=== PATIENT | male | born 1980 | race Caucasian/White ===

== ENCOUNTER 2024-04-07 14:20 | Outpatient (AMB) | payer OTHER, SELFPAY ==
--- NOTE | 2024-04-07 14:25 | MHC.PC.OV ---
Vital Signs 04/07/24 14:29 Height 5 ft 7.32 in Weight 173 lb BMI 26.8 BP 150/100 H Blood Pressure Location Lt brachial Position Sitting Intake Visit Reasons: establish care-[facility] rescheduled from 10/16 Catering Service Manager Required: No Accompanied by: Self / Same As Patient Allergies No Known Allergies Allergy (Verified 04/07/24 14:44) Medication List - Last Reconciled 04/07/24 by Vijaya Swain MD No Known Home Meds Tobacco use date assessed: 04/07/24 Dental Screening Dental Screen Date: 04/07/24 Did you have a dental visit in the last 12 months?: No Did you have a dental problem in the last 6 months where you did not have access to dental care?: No Was dental information given to patient?: Patient has dentist HPI HPI Comments History of Present Illness Details The patient is a 43-year-old male presenting with elevated blood pressure and palpitations. The patient reports experiencing elevated blood pressure in the past few years, with episodes coinciding with what he thought were panic attacks, characterized by tunnel vision and nearly fainting. These episodes led to an incident in [place] where an ambulance was called, and the responders noted significantly high blood pressure. Historically, the patient has been poor in managing this condition. He has not been on any routine medication or antihypertensive therapy prior to this visit. In addition to hypertension, the patient describes palpitations predominantly occurring at rest and more frequently with caffeine intake, typically consuming five to six cups of coffee per day. These symptoms started earlier this year along with reported stress. Social History reveals significant nicotine use, estimated at 10 cigarettes per day, and occasional alcohol consumption. The patient admits readiness to quit smoking despite struggling with dependency. The family history is significant for cardiovascular and oncological conditions. His father following complications related to diabetes, a myocardial infarction, and stroke. His mother, who currently suffers from atrial fibrillation, has a history of myocardial infarction and skin cancer. Additionally, the patient's maternal family has history, including his aunt who recently from breast cancer. [facility] Surgical History History of surgery on right wrist Family History Mother Afib Skin cancer Father Diabetes Hypertension Stroke Heart attack Maternal Grandmother Cancer Maternal Aunt Cancer Social History Housing: House Alcohol intake: current Alcohol intake frequency: holidays/special occasions only Alcohol type: beer, wine and hard liquor Patient Tobacco Use Status: Current everyday Tobacco user Tobacco use type: Cigarette Cigarettes Per Day: 10 e-Cigarette/Vaping Use: Never Used Second Hand Smoke Exposure: No service: No Current occupational status: unemployed Cognitive needs: No Hearing needs: No Vision needs: No Questionnaire PHQ-9 Over the last 2 weeks, how often have you been bothered by any of the following problems? 1. Little interest or pleasure in doing things: not at all 2. Feeling down, depressed, or hopeless: more than half the days 3. Trouble falling or staying asleep, or sleeping too much: nearly every day 4. Feeling tired or having little energy: nearly every day 5. Poor appetite or overeating: not at all 6. Feeling bad about yourself - or that you are a failure or have let yourself or your family down: several days 7. Trouble concentrating on things, such as reading the newspaper or watching television: several days 8. Moving or speaking so slowly that other people could have noticed. Or the opposite - being so fidgety or restless that you have been moving around a lot more than usual: more than half the days 9. Thoughts that you would be better off or of hurting yourself in some way: not at all Total score: 12 Depression Screening Interpretation: Positive Depression Screening Follow-up: Existing condition, Follow-up Visit Requested and Declines treatment Depression Screening Done: Yes 16580 - PHQ-9 Billing: Yes Source: Developed by Drs. Sam Villalpando, Lacey Day, Jamin Bowen and colleagues, with an educational uriel from [employer]. Thrive Questionnaire Date Thrive assessed: 04/01/24 I am a: Patient What is your living situation today?: I have a place to live, but I am worried about losing it in the future Within the past 12 months, did the food you bought not last and you didn't have the money to get more?: Sometimes True Within the past 12 months, did you worry whether your food would run out before you got money to buy more?: Often true Do you have trouble paying for medicines?: Yes Do you have trouble getting transportation to medical appointments?: No Do you have trouble paying your heating and electricity bill?: Yes Do you have trouble taking care of your child, family member or friend?: No Do you have trouble with day-to-day activities such as bathing, preparing meals, shopping, managing finances, etc.?: No Are you currently unemployed and looking for a job?: Yes Are you interested in more education?: Yes Please select the resources that you would like help with: None Currently or been in a relationship where the following occur: No concerns reported THRIVE Score: 4 AUDIT C Alcohol Use Questionnaire (AUDIT-C) 1. How often do you have a drink containing alcohol?: Monthly or less 2. How many drinks containing alcohol do you have on a typical day when you are drinking?: 1 or 2 3. How often do you have six or more drinks on one occasion?: Less than monthly Total Score: 2 Score Reviewed/Action Taken: No NIKA-7 AMB Questionnaire NIKA-7 Date NIKA - 7 assessed: 04/07/24 Feeling nervous, anxious, or on edge: 3 = Nearly every day Not being able to stop or control worryin = Several days Worrying too much about different things: 2 = More than half the days Trouble relaxin = Not at all Being so restless that it is hard to sit still: 1 = Several days Becoming easily annoyed or irritable: 0 = Not at all Feeling afraid as if something awful might happen: 0 = Not at all Total NIKA-7 score (0-4 normal; 5-9 mild; 10-14 moderate; 15-21 severe): 7 Source: Developed by Drs. Sam Villalpando, Lacey Day, Jamin Bowen and colleagues, with an educational uriel from [employer]. NIKA-7 Assessment Billing NIKA-7 Assessment Tool: NIKA-7 Assessment 78914 Review of Systems Const All systems reviewed & are unremarkable except as noted in HPI and below Card Denies chest pain at rest, Denies chest pain with activity, Reports rapid heart rate, Denies edema, Denies irregular heart rhythm, Denies claudication, Denies dyspnea, Denies dyspnea on exertion, Denies orthopnea, Denies paroxysmal nocturnal dyspnea and Denies slow heart rate Resp Denies cough, Denies dyspnea and Denies dyspnea on exertion GI Denies abdominal pain, Denies change in bowel habits, Denies excessive flatus, Denies nausea and Denies vomiting Denies urinary hesitancy, Denies urinary incontinence and Denies urinary urgency Musc Denies atrophy, Denies deformity and Denies limited range of motion Skin/Breast Denies bleeding lesions, Denies changing lesions and Denies rash Psych Reports anxiety and Reports depression Physical exam (Primary Care) Vital Signs: Last Vital Signs BP 150/100 H 04/07/24 14:29 Care Plan Goal for BP management: Recheck blood pressure with nurse navigator in 3 weeks BMI result Body Mass Index 26.8 Tobacco/Smoking Status: Tobacco use Status Tobacco use date assessed 04/07/24 04/07/24 14:39 Patient Tobacco Use Status Current everyday Tobacco 04/07/24 14:39 Tobacco use type Cigarette 04/07/24 14:39 e-Cigarette/Vaping Use Never Used 04/07/24 14:39 Are you ready to quit: No Tobacco cessation counseling provided: Yes Items discussed: Nicotine replacement and QuitWorks Relapse Prevention: discussed the importance of a supportive environment, discussed extending NRT, discussed negative mood or depression after quitting, weight gain after smoking is common and discussed dietary, exercise and/or lifestyle changes Number of minutes spent counselin CPT code: 90451 - 4-10 Minutes PHQ-9: PHQ-9 Score PHQ-9: Total score 12 04/07/24 14:54 Depression Screening Interpretation: Positive Depression Screening Follow-up: Existing condition, Follow-up Visit Requested and Declines treatment Thrive Assessment: Date of Thrive Assessment Date Thrive assessed 04/01/24 04/07/24 14:26 Currently or been in a relationship where the following occur: No concerns reported Resp Effort & Inspection: normal respiratory effort Auscultation: clear to auscultation bilaterally Cardio Jugular venous distension: no JVD Rate: regular rate Rhythm: regular rhythm Heart sounds: S1 normal heart sound present and S2 normal heart sound present Extrem General: Yes full ROM Office Procedures Flu Questionnaire Does the patient have a severe egg allergy?: No Does the patient have severe life threatening allergies?: No Does the patient have a fever or illness today?: No Has the patient ever had Guillain-[place] Syndrome?: No Has the patient ever had any past reaction to a flu shot?: No Immunizations Fluarix Triv 2521-3593 (PF) 45 mcg (15 mcg x 3)/0.5 mL IM syringe Performing Provider: Vijaya Swain MD Performing Location: [facility] [place] [facility] Administered by: JAJA Solitario on 04/07/24 14:59 Dose Route Admin Location Dispensed Lot Number Expiration Date [facility] Latexer 0.5 mL IM Left Deltoid 0.5 mL [id number] 11/16/24 [id number] [employer] VIS Given Date VIS Provided VIS Publication Date 04/07/24 Single Vaccine 20 Eligibility Eligibility Date Funding Source Not [facility] Eligible 04/07/24 Private Coding Level of Care Code New Pt Level 4 (77209) Complex EM visit Add On G2211 Diagnoses Palpitations R00.2 Moderate major depression F32.1 Essential hypertension I10 NIKA (generalized anxiety disorder) F41.1 Additional Codes PHQ-9 - 85426 - PHQ-9 Billing: Yes ([id number]) NIKA-7 Assessment Billing - NIKA-7 Assessment Tool: NIKA-7 Assessment 08399 ([id number]) Vital Signs *Quality* - CPT code: 87391 - 4-10 Minutes ([id number]) Time Spent (min) 25 Assessment & Plan Assessment & Plan (1) Palpitations: Code(s): R00.2 - Palpitations Category: Medical (2) Moderate major depression: Code(s): F32.1 - Major depressive disorder, single episode, moderate Category: Medical (3) Essential hypertension: Code(s): I10 - Essential (primary) hypertension Category: Medical (4) NIKA (generalized anxiety disorder): Code(s): F41.1 - Generalized anxiety disorder Category: Medical Plan - Essential Hypertension: Recommend rechecking blood pressure in three weeks. If elevated, start antihypertensive medication. Suggest the daily use of baby aspirin to reduce cardiovascular risk. - Palpitations: Order an EKG and a Holter monitor for 24 hours to assess for arrhythmias. Check thyroid function, glucose levels, renal and liver function, and lipid profiles. - Depression and Anxiety: Offer counseling if the patient finds symptoms unmanageable. - Nicotine Dependence: Discuss smoking cessation options, including patches and supportive resources. - Decrease caffeine intake to two cups a day and aim to consume before noon to manage palpitations. Patient was informed and verbally consented to the use of an ambient scribe for clinic note documentation during this visit. I discussed the potential diagnosis of developed hypertension and the management steps including lifestyle modifications, such as reducing caffeine intake and smoking cessation efforts, for cardiovascular risk reduction. I highlighted the importance of the follow-up appointment in three weeks to reassess blood pressure, as well as the potential need to initiate antihypertensive medication if hypertension persists. I also outlined the use of a Holter monitor and EKG to assess palpitations and any underlying arrhythmia concerns. I addressed the offer of counseling for depression and anxiety, assessed through a PHQ-9 score of 12, and the patient declined. We discussed initiating a baby aspirin regimen to mitigate the risk of cardiovascular events. Potential risks and benefits of proposed interventions were discussed, and the patient consented to the plan, emphasizing a supportive environment for smoking cessation. Orders: Orders Influenza [id number] Immunization Today Z23 - Encounter for immunization Thyroid Stimulating Hormone Today R00.2 - Palpitations Comprehensive Rueter. Panel Fast Today R00.2 - Palpitations ECG 12 lead EKG Today R00.2 - Palpitations ECG holter monitor 24 hour Today R00.2 - Palpitations Lipid Panel Today I10 - Essential (primary) hypertension Complete Blood Count Auto Diff Today R00.2 - Palpitations Patient Instructions: - Re-evaluate blood pressure in three weeks. - Reduce daily coffee intake to no more than two cups, ideally before noon. - Consider using smoking cessation aids like patches. - Begin taking a daily baby aspirin to reduce cardiovascular risk. - Be aware of any symptoms like increased palpitations or significant mood changes, and seek medical care if they occur.
[2024-04-07 14:29] VITALS: BP 150/100; BMI 26.8
== END 2024-04-07 15:07 | disposition home or self-care (01) ==
PROVIDERS: PCP Internal Medicine; Visit Provider Internal Medicine
DX: R00.2 Palpitations (principal); F32.1 Major depressive disorder, single episode, moderate; I10 Essential (primary) hypertension; F41.1 Generalized anxiety disorder; Z23 Encounter for immunization

== ENCOUNTER → 2024-04-07 14:20 | Outpatient (BNVA) | payer OTHER, SELFPAY | PROVIDERS: PCP Internal Medicine; Visit Provider Internal Medicine | DX: R00.2 Palpitations (principal); F32.1 Major depressive disorder, single episode, moderate; I10 Essential (primary) hypertension; F41.1 Generalized anxiety disorder; Z23 Encounter for immunization | CPT/HCPCS: 90471; 90656; 96127 ==

== ENCOUNTER → 2024-04-20 06:52 | Outpatient (REF) | payer OTHER, SELFPAY ==
--- NOTE | 2024-04-20 06:54 | HM_ITS ---
Conclusion: 1. Patient was monitored for total period of 1 day 2. Baseline was normal sinus rhythm with average heart of 69 beats per minute 3. No significant pauses or arrhythmias noted 4. Patient marked 2 events correlating with sinus rhythm MTDD
== END ==
LOC: HO.CARD 06:52
PROVIDERS: PCP Internal Medicine; Visit Provider Internal Medicine
DX: R00.2 Palpitations (principal)
CPT/HCPCS: 93225

== ENCOUNTER → 2024-04-20 06:54 | Outpatient (BNV) | payer OTHER, SELFPAY | PROVIDERS: PCP Internal Medicine; Visit Provider Internal Medicine Cardiovascular Disease | DX: I47.10 Supraventricular tachycardia, unspecified (principal) | CPT/HCPCS: 93227 ==

== ENCOUNTER → 2024-04-24 11:01 | Outpatient (BNVA) | payer OTHER, SELFPAY | PROVIDERS: PCP Internal Medicine ==

== ENCOUNTER → 2024-04-24 11:02 | Outpatient (REF) | payer OTHER, SELFPAY ==
--- NOTE | 2024-04-24 11:07 | ECG_ITS ---
Test Reason : PALPS Blood Pressure : / mmHG Vent. Rate : 059 BPM Atrial Rate : 059 BPM P-R Int : 148 ms QRS Dur : 102 ms QT Int : 426 ms P-R-T Axes : 056 084 047 degrees QTc Int : 421 ms Sinus bradycardia Incomplete right bundle branch block Borderline ECG No previous ECGs available Referred By: Vijaya Swain Electronically Signed By:Manuel Burrows
== END ==
LOC: HO.CARD 11:02
PROVIDERS: PCP Internal Medicine; Visit Provider Internal Medicine
DX: R00.2 Palpitations (principal)
CPT/HCPCS: 93005

== ENCOUNTER → 2024-04-24 11:07 | Outpatient (BNV) | payer OTHER, SELFPAY | PROVIDERS: PCP Internal Medicine; Visit Provider Internal Medicine Cardiovascular Disease | DX: R00.2 Palpitations (principal); R00.1 Bradycardia, unspecified; I45.19 Other right bundle-branch block; R94.31 Abnormal electrocardiogram [ECG] [EKG] | CPT/HCPCS: 93010 ==

== ENCOUNTER 2024-04-30 08:15 | Outpatient (REF) | payer OTHER, SELFPAY ==
[2024-04-30 08:34] LABS: MANUAL DIFF FLAG NO
[2024-04-30 09:10] LABS: Basophils Percent Auto 0.5 % (0-2); Eosinophils Absolute Auto 0.2 X10*3/uL (0.0-0.4); Eosinophils Percent Auto 2.1 % (0-4); Hematocrit 47.2 % (42.0-52.0); Hemoglobin 15.6 g/dl (14.0-18.0); Imm Gran Abs Auto 0.02 X10*3/uL (0.00-0.03); Imm Gran Pct Auto 0.2 % (0.0-0.4); Lymphocytes Absolute Auto 2.1 X10*3/uL (1.2-4.9); Lymphocytes Percent Auto 25.7 % (20-40); Mean Corpuscular HGB Conc 33.1 g/dl (31.0-36.0); Mean Corpuscular Hemoglobin 27.7 pg (27.0-33.0); Mean Corpuscular Volume 83.7 fL (80.0-98.0); Monocytes Absolute Auto 0.8 X10*3/uL (0.1-1.2); Monocytes Percent Auto 9.8 % (2-11); Neutrophils Percent Auto 61.7 % (45-73); Platelet Count 287 X10*3/uL (160-400); Red Blood Count 5.64 X10*6/uL (4.60-5.80); Red Cell Distribution Width 13.2 % (11.0-16.0)
[2024-04-30 09:44] LABS: Alanine Aminotransferase 46 U/L (0-40); Albumin Level 4.2 g/dL (3.5-5.0); Alkaline Phosphatase 80 U/L (39-117); Anion Gap 9 (12-20); Aspartate Amino Transferase 27 U/L (5-37); Bilirubin Total 0.5 mg/dL (0.0-1.0); Blood Urea Nitrogen 12 mg/dL (9-16); Calcium 9.5 mg/dL (8.4-10.2); Carbon Dioxide 30 mmol/L (22-29); Chloride 107 mmol/L (96-108); Cholesterol 196 mg/dL (<200); Estimated Glomerular Filt Rate > 60; Glucose Fasting 91 mg/dL (60-99); HDL Cholesterol 26 mg/dL (>40); LDL Cholesterol Calculated 145 mg/dL (<100); Potassium 4.4 mmol/L (3.3-5.1); Sodium 142 mmol/L (135-145); Total Protein 7.4 g/dL (6.5-8.0); Triglycerides 127 mg/dL (<150)
[2024-04-30 10:01] LABS: Thyroid Stimulating Hormone 1.84 uIU/mL (0.32-4.0)
== END 2024-04-30 08:16 | disposition home or self-care (01) ==
LOC: HO.LAB 08:15
PROVIDERS: PCP Internal Medicine; Visit Provider Internal Medicine
DX: R00.2 Palpitations (principal); I10 Essential (primary) hypertension
CPT/HCPCS: 36415; 80053; 80061; 84443; 85025

== ENCOUNTER 2024-08-11 15:20 | Outpatient (AMB) | payer OTHER, SELFPAY ==
--- NOTE | 2024-08-11 15:22 | MHC.PC.OV ---
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 Accompanied by: Self / Same As Patient Allergies No Known Allergies Allergy (Verified 08/11/24 15:34) Medication List - Last Reconciled 08/11/24 by Vijaya Swain MD No Known Home Meds Tobacco use date assessed: 08/11/24 Dental Screening Dental Screen Date: 08/11/24 Did you have a dental visit in the last 12 months?: No Did you have a dental problem in the last 6 months where you did not have access to dental care?: No Was dental information given to patient?: Patient has dentist HPI HPI Comments History of Present Illness Details The patient is a 43-year-old male presenting for a routine physical examination. He reports a significant history of tobacco use, currently smoking approximately 30 cigarettes daily, with multiple unsuccessful attempts to quit, utilizing methods such as nicotine patches, gums, and Chantix. He wishes to quit smoking but finds it challenging due to withdrawal symptoms and lack of efficacy with past interventions. The patient has a mild major depressive disorder, with a PHQ-9 score of 9. He has not sought psychiatric counseling or medication but acknowledges the factors contributing to his depression. He also experiences anxiety, reflected in a NIKA score of 13, and has not pursued therapy for this condition. In the past, he has experienced episodes jacky to panic attacks but reports no recent occurrences of such symptoms. He denies chest pain or shortness of breath currently. His most recent laboratory work displays a mildly elevated liver ALT level of 46, with previous tests showing similar results. He denies significant symptoms associated with liver dysfunction. His family medical history reveals notable cardiovascular and oncological conditions in his parents, including atrial fibrillation, skin cancer, diabetes, hypertension, cerebrovascular accidents, and myocardial infarctions. - Patient up-to-date with vaccinations; received Tdap vaccine in 2023. - Laboratory tests in April noted slightly elevated liver ALT levels; repeat results remain similar. - Blood glucose level at 91 indicates normal glycemic control. - Cholesterol levels within acceptable ranges, but HDL presenting lower than optimal. - Recent cardiovascular assessment revealed a heart rate marginally below normal at 59 and an incomplete right bundle branch block on EKG; referral to cardiology scheduled for September 01. PFSH Medical History (Updated 08/11/24 @ 15:52 by Vijaya Swain MD) Essential hypertension Moderate major depression Surgical History History of surgery on right wrist Family History Mother Afib Skin cancer Father Diabetes Hypertension Stroke Heart attack Maternal Grandmother Cancer Maternal Aunt Cancer Social History (Updated 08/11/24 @ 15:39 by Vijaya Swain MD) Housing: House Alcohol intake: current Alcohol intake frequency: holidays/special occasions only Alcohol type: beer, wine and hard liquor Patient Tobacco Use Status: Current everyday Tobacco user Tobacco use type: Cigarette Cigarettes Per Day: 30 e-Cigarette/Vaping Use: Never Used Second Hand Smoke Exposure: No service: No Current occupational status: unemployed Cognitive needs: No Hearing needs: No Vision needs: No Questionnaire PHQ-9 Over the last 2 weeks, how often have you been bothered by any of the following problems? 1. Little interest or pleasure in doing things: several days 2. Feeling down, depressed, or hopeless: several days 3. Trouble falling or staying asleep, or sleeping too much: not at all 4. Feeling tired or having little energy: nearly every day 5. Poor appetite or overeating: several days 6. Feeling bad about yourself - or that you are a failure or have let yourself or your family down: several days 7. Trouble concentrating on things, such as reading the newspaper or watching television: several days 8. Moving or speaking so slowly that other people could have noticed. Or the opposite - being so fidgety or restless that you have been moving around a lot more than usual: several days 9. Thoughts that you would be better off or of hurting yourself in some way: not at all Total score: 9 Depression Screening Interpretation: Positive Depression Screening Follow-up: Existing condition, Follow-up Visit Requested and Declines treatment Depression Screening Done: Yes 00809 - PHQ-9 Billing: Yes Source: Developed by Drs. Sam Villalpando, Lacey Day, Jamin Bowen and colleagues, with an educational uriel from [employer]. Thrive Questionnaire Date Thrive assessed: 08/06/24 I am a: Patient What is your living situation today?: I have a steady place to live Within the past 12 months, did the food you bought not last and you didn't have the money to get more?: Often true Within the past 12 months, did you worry whether your food would run out before you got money to buy more?: Often true Do you have trouble paying for medicines?: Yes Do you have trouble getting transportation to medical appointments?: No Do you have trouble paying your heating and electricity bill?: Yes Do you have trouble taking care of your child, family member or friend?: No Do you have trouble with day-to-day activities such as bathing, preparing meals, shopping, managing finances, etc.?: I choose not to answer this question Are you currently unemployed and looking for a job?: No Are you interested in more education?: Yes Please select the resources that you would like help with: None Currently or been in a relationship where the following occur: No concerns reported THRIVE Score: 3 AUDIT C Alcohol Use Questionnaire (AUDIT-C) 1. How often do you have a drink containing alcohol?: Monthly or less 2. How many drinks containing alcohol do you have on a typical day when you are drinking?: 3 or 4 3. How often do you have six or more drinks on one occasion?: Less than monthly Total Score: 3 NIKA-7 AMB Questionnaire NIKA-7 Date NIKA - 7 assessed: 08/11/24 Feeling nervous, anxious, or on edge: 2 = More than half the days Not being able to stop or control worryin = Not at all Worrying too much about different things: 1 = Several days Trouble relaxin = Nearly every day Being so restless that it is hard to sit still: 2 = More than half the days Becoming easily annoyed or irritable: 3 = Nearly every day Feeling afraid as if something awful might happen: 2 = More than half the days Total NIKA-7 score (0-4 normal; 5-9 mild; 10-14 moderate; 15-21 severe): 13 Source: Developed by Drs. Sam Villalpando, Lacey Day, Jamin Bowen and colleagues, with an educational uriel from [employer]. NIKA-7 Assessment Billing NIKA-7 Assessment Tool: NIKA-7 Assessment 38095 Review of Systems Const All systems reviewed & are unremarkable except as noted in HPI and below Card Denies chest pain at rest, Denies chest pain with activity, Denies edema, Denies irregular heart rhythm, Denies claudication, Denies dyspnea, Denies dyspnea on exertion, Denies orthopnea, Denies paroxysmal nocturnal dyspnea and Denies slow heart rate Resp Denies cough, Denies dyspnea and Denies dyspnea on exertion GI Denies abdominal pain, Denies change in bowel habits, Denies excessive flatus, Denies nausea and Denies vomiting Denies urinary hesitancy, Denies urinary incontinence and Denies urinary urgency Musc Denies abnormal gait, Denies atrophy, Denies deformity and Denies limited range of motion Skin/Breast Denies bleeding lesions, Denies changing lesions and Denies rash Neuro Denies abnormal gait and Denies lack of coordination Physical exam (Primary Care) Vital Signs: Last Vital Signs BP 128/80 08/11/24 15:25 BMI result Body Mass Index 24.2 Tobacco/Smoking Status: Tobacco use Status Tobacco use date assessed 08/11/24 08/11/24 15:30 Patient Tobacco Use Status Current everyday Tobacco 08/11/24 15:30 Tobacco use type Cigarette 08/11/24 15:30 e-Cigarette/Vaping Use Never Used 08/11/24 15:30 Are you ready to quit: Yes Tobacco cessation counseling provided: Yes Items discussed: Nicotine replacement and QuitWorks Relapse Prevention: discussed the importance of a supportive environment, discussed negative mood or depression after quitting, weight gain after smoking is common and discussed dietary, exercise and/or lifestyle changes Number of minutes spent counselin CPT code: 93778 - 4-10 Minutes PHQ-9: PHQ-9 Score PHQ-9: Total score 9 08/11/24 15:30 Depression Screening Interpretation: Positive Depression Screening Follow-up: Existing condition, Follow-up Visit Requested and Declines treatment Thrive Assessment: Date of Thrive Assessment Date Thrive assessed 08/06/24 08/11/24 15:30 Currently or been in a relationship where the following occur: No concerns reported HENMT Head: Yes normal to inspection, Yes normocephalic and Yes atraumatic Ears: external ears normal Eyes General: appearance normal, both eyes and all related structures Eyelids: Yes eyelids normal Conjunctivae: conjunctivae normal Neck Neck: Yes normal visual inspection and Yes supple Resp Effort & Inspection: normal respiratory effort Auscultation: clear to auscultation bilaterally Cardio Jugular venous distension: no JVD Rate: regular rate Rhythm: regular rhythm Heart sounds: S1 normal heart sound present and S2 normal heart sound present GI Inspection: Yes normal to inspection Palpation (GI): Soft to palpation and nontender Auscultation: normal bowel sounds Skin General skin exam: no rashes or lesions noted Neuro General: no focal motor deficits Extrem General: Yes full ROM Psych Appearance: grossly normal Coding Level of Care Code Est Pt Prev Care 40-64y(56152) Diagnoses Physical exam Z00.00 Mild recurrent major depression F33.0 Additional Codes PHQ-9 - 32853 - PHQ-9 Billing: Yes ([id number]) NIKA-7 Assessment Billing - NIKA-7 Assessment Tool: NIKA-7 Assessment 31680 ([id number]) Vital Signs *Quality* - CPT code: 17160 - 4-10 Minutes ([id number]) Time Spent (min) 31 Assessment & Plan Assessment & Plan (1) Physical exam: Code(s): Z00.00 - Encounter for general adult medical examination without abnormal findings Category: Medical (2) Mild recurrent major depression: Code(s): F33.0 - Major depressive disorder, recurrent, mild Category: Medical Plan The patient expressed a willingness to address his tobacco use disorder, and I encouraged support programs and considering financial savings as motivation. His mild major depressive disorder and generalized anxiety disorder were discussed, and self-management was considered appropriate due to current symptom levels. Ongoing monitoring of elevated ALT levels was indicated, with potential liver imaging if abnormalities persist. Referral to cardiology for evaluation of incomplete right bundle branch block was noted, and continued follow-up on health maintenance practices was advised. Patient was informed and verbally consented to the use of an ambient scribe for clinic note documentation during this visit. We discussed the patient's ongoing tobacco use and cessation efforts. I recommended exploring available resources and considering financial incentives. The patient's current psychosocial stressors were reviewed in light of his mild major depression and anxiety. Although not pursuing therapy currently, I encouraged self-management strategies. I explained that his labs showed a slight elevation in liver ALT levels, necessitating monitoring. I recommended a cardiology follow-up for his heart conduction issue. Follow-up instructions for repeat liver function tests and potential dietary changes were provided, highlighting the collaborative approach toward improved health outcomes. Orders: Orders Liver Panel Today R74.01 - Elevation of levels of liver transaminase levels Patient Instructions: - Consider joining a smoking cessation support program. - Monitor for any significant changes in depressive or anxiety symptoms and seek help if needed. - Schedule a follow-up cardiology appointment for August as planned. - Repeat liver function testing in three months. - Integrate more nutrient-rich foods into your diet. - Notify the office if experiencing new or worsening symptoms.
[2024-08-11 15:25] VITALS: BP 128/80; BMI 24.2
== END 2024-08-11 16:00 | disposition home or self-care (01) ==
LOC: HO.HMCH 15:21
PROVIDERS: PCP Internal Medicine; Visit Provider Internal Medicine
DX: Z00.00 Encounter for general adult medical examination without abnormal findings (principal); F33.0 Major depressive disorder, recurrent, mild

== ENCOUNTER → 2024-08-11 15:20 | Outpatient (BNVA) | payer OTHER, SELFPAY | PROVIDERS: PCP Internal Medicine; Visit Provider Internal Medicine | DX: Z00.00 Encounter for general adult medical examination without abnormal findings (principal); F33.0 Major depressive disorder, recurrent, mild; F17.210 Nicotine dependence, cigarettes, uncomplicated | CPT/HCPCS: 96127 ==